=== PATIENT | male | born 1980 | race Caucasian/White ===

== ENCOUNTER 2018-02-09 10:33 | Emergency (ER) | payer OTHER ==
[~2018-02-09 10:33] MED LIST: AMPH30TA10 PO; IBUP800T37 PO; LOR5 PO; LOR5/325 PO
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
[2018-02-09 11:00] VITALS: BP 133/93
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
== END 2018-02-09 11:33 | disposition home or self-care (01) ==
LOC: ER 10:51
DX: S40.212A Abrasion of left shoulder, initial encounter (principal); V48.5XXA Car driver injured in noncollision transport accident in traffic accident, initial encounter
CPT/HCPCS: 99283

== ENCOUNTER 2018-03-14 03:42 | Emergency (ER) | payer SELFPAY ==
[2018-03-14 03:45] VITALS: BP 145/95
--- NOTE | 2018-03-14 03:46 | ER Report ---
History and Physical Time Seen By MD: 03:45 HPI/ROS CHIEF COMPLAINT: Toothache HISTORY OF PRESENT ILLNESS: Patient with complaint of left lower jaw pain that began approximately 24 hours ago. Patient noticed some swelling this evening when he woke up in pain. He has been taking Tylenol and Motrin for pain. Patient does not routinely follow with a dentist. REVIEW OF SYSTEMS: Gen: No fevers ENT: Left lower jaw pain, no ear pain Allergies: Coded Allergies: No Known Drug Allergies (Verified , 02/09/18) Home Meds Active Scripts Clindamycin Hcl (CLINDAMYCIN HCL) 300 Mg Capsule, 300 MG PO Q6H, #40 CAPSULE 0 Refills Prov:HERNAN TROTTER MD 03/14/18 Oxycodone Hcl/Acetaminophen (PERCOCET 5-325 MG TABLET) 1 Each Tablet, 1 EACH PO Q4H for PAIN, #20 TAB 0 Refills Prov:HERNAN TROTTER MD 03/14/18 Reported Medications Amphet Asp/Amphet/D-Amphet (ADDERALL 30 MG TABLET) 30 Mg Tablet, 30 MG PO BID 08/29/14 Past Medical/Surgical History Noncontributory ports this chief complaint Hx Smoking: Yes Smoking Status: Current: Every Day Smoker Constitutional Vital Sign - Last 24 Hours 03/14/18 03:45 Temp 98.1 Pulse 65 Resp 17 B/P (MAP) 145/95 Pulse Ox 94 O2 Delivery Room Air Physical Exam General Appearance: Alert, no distress. Eyes: Pupils equal and round no pallor or injection. ENT, Mouth: Ears: Tympanic membranes are normal. Nose: No bleeding. Mouth: Mucous membranes are moist. Patient has a fractured 1st mandibular molar left aspect of the jaw. There is some gingival swelling no palpable abscess. Throat: No erythema or exudates there is no tonsillar hypertrophy and uvula is midline. Musculoskeletal: Neck is supple non tender, no adenopathy. Skin: Warm and dry, no rashes. Medical Decision Making ED Course/Re-evaluation ED Course 03/14/2018 3:59:26 am . Inferior alveolar nerve Block was performed. 2 mL of 0.5%. Marcaine was injected to the inferior alveolar foramen of the left jaw. Plan at this time will be intramuscular injection of clindamycin along with sending patient home with oral clindamycin and Percocet will also call in prescription for both. Decision to Disposition Date: Mar 14, 2018 Decision to Disposition Time: 04:15 Depart Departure Latest Vital Signs Vital Signs Date Time Temp Pulse Resp B/P (MAP) Pulse Ox O2 Delivery O2 Flow Rate FiO2 03/14/18 03:45 98.1 65 17 145/95 94 Room Air Impression: Primary Impression: Pain, dental Condition: Improved Disposition: HOME OR SELF-CARE New Scripts Clindamycin Hcl (CLINDAMYCIN HCL) 300 Mg Capsule 300 MG PO Q6H, #40 CAPSULE 0 Refills Prov: HERNAN TROTTER MD 03/14/18 Oxycodone Hcl/Acetaminophen (PERCOCET 5-325 MG TABLET) 1 Each Tablet 1 EACH PO Q4H for PAIN, #20 TAB 0 Refills Prov: HERNAN TROTTER MD 03/14/18 Patient Instructions: Dental Caries (GEN) Additional Instructions: Scheduling follow-up appointment with [facility] by calling [phone] Take your antibiotics and pain medication as directed. You were given one morning dose of clindamycin which yoy should taken approximately 6 hours then fill your prescription and take as directed. Percocet 1 tablet every 4 hours as needed for pain HERNAN TROTTER MD Mar 14, 2018 03:46
[2018-03-14] MEDS ORDERED: oxyCODONE/ACETAMIN 5/325MG TH 2 TAB/BOTTLE PO ONE (04:00)
[2018-03-14] MEDS ORDERED: CLINDAMYCIN 150 MG CAP PO ONE (04:00)
[2018-03-14] MEDS ORDERED: CLINDAMYCIN 300 MG/2 ML VIAL IM ONE (04:00)
[2018-03-14] MEDS ORDERED: CLIN300C99 PO (04:02)
[2018-03-14] MEDS ORDERED: OXYC-865 PO (04:02)
== END 2018-03-14 04:11 | disposition home or self-care (01) ==
LOC: ER 03:47
DX: K08.89 Other specified disorders of teeth and supporting structures (principal)
CPT/HCPCS: 64400; 96372; 99283; J3490

== ENCOUNTER 2018-03-14 12:46 | Emergency (ER) | payer SELFPAY ==
[~2018-03-14 12:46] MED LIST changes: +CLIN300C99 PO; +OXYC-865 PO
--- NOTE | 2018-03-14 13:16 | ER Report ---
History and Physical Time Seen By MD: 13:00 Hx. of Stated Complaint: PATIENT REPORTS DENTAL ABSCESS NOT IMPROVING AFTER 1 DOSE OF ORAL ABX HPI/ROS CHIEF COMPLAINT: Dental pain HISTORY OF PRESENT ILLNESS: This is a 37-year-old male who presents to the emergency department for dental pain and swelling. Patient was seen and evaluated in the manager food for potential dental infection, was given clindamycin injection and a prescription as well, was also given Percocet for pain. He states that he was concerned that the swelling had increased since receiving the antibiotics. No fevers or chills. No nausea or vomiting. Patient does state that the pain has improved however he is just concerned with the amount of swelling. No chest pain or shortness breath. REVIEW OF SYSTEMS: Constitutional: No fever, no chills. Eyes: No discharge. ENT: As above. Cardiovascular: No chest pain, no palpitations. Respiratory: No cough, no shortness of breath. Gastrointestinal: No abdominal pain, no vomiting. Genitourinary: No hematuria. Musculoskeletal: No back pain. Skin: No rashes. Neurological: No headache. Allergies: Coded Allergies: No Known Drug Allergies (Verified , 02/09/18) Home Meds Active Scripts Clindamycin Hcl (CLINDAMYCIN HCL) 300 Mg Capsule, 300 MG PO Q6H, #40 CAPSULE 0 Refills Prov:HERNAN THOMAS MD 03/14/18 Oxycodone Hcl/Acetaminophen (PERCOCET 5-325 MG TABLET) 1 Each Tablet, 1 EACH PO Q4H for PAIN, #20 TAB 0 Refills Prov:HERNAN THOMAS MD 03/14/18 Reported Medications Amphet Asp/Amphet/D-Amphet (ADDERALL 30 MG TABLET) 30 Mg Tablet, 30 MG PO BID 08/29/14 Past Medical/Surgical History The patient has a past medical and surgical history of borderline hypertension, ADHD, poor dentition. Hx Smoking: Yes Smoking Status: Current: Every Day Smoker Constitutional Vital Sign - Last 24 Hours 03/14/18 03/14/18 12:52 13:23 Temp 98.9 Pulse 75 70 Resp 20 B/P (MAP) 149/103 141/98 (112) Pulse Ox 92 93 O2 Delivery Room Air Room Air Physical Exam General Appearance: The patient is alert, has no immediate need for airway protection and no signs of toxicity. Eyes: Pupils equal and round no pallor or injection. ENT, Mouth: Mucous membranes are moist. Several cavities noted throughout, does have a broken tooth to the 2nd molar on the left mandible. Gingivitis throughout, no erythema or purulent Drainage noted. No fluctuance or apparent abscess to the left lower jaw, there is generalized swelling. Respiratory: There are no retractions, lungs are clear to auscultation. Cardiovascular: Regular rate and rhythm. Gastrointestinal: Abdomen is soft and non tender, no masses, bowel sounds normal. Neurological: Alert and oriented 4. Moving all cavities. No commands. No focal neuro deficits. Skin: Warm and dry, no rashes. Musculoskeletal: Neck is supple non tender. No lymphadenopathy. Extremities are nontender, nonswollen and have full range of motion. DIFFERENTIAL DIAGNOSIS: After history and physical exam differential diagnosis was considered for dental caries, dental abscess, Eliot's angina, peritonsillar abscess. Medical Decision Making ED Course/Re-evaluation ED Course Patient was admitted to room. A history and physical were obtained. Differential diagnoses were considered. After examination of the patient, he was concerned about the amount of swelling since receiving his initial dose of antibiotics, he has taken an additional dose of clindamycin. He is also taken the Percocet, patient states that the pain is improved he just concerned with the amount of swelling involved. I did offer the patient a CT scan to evaluate for an abscess, patient states that he is not CT scan at this time. I did recommend continuing the clinic myosin and ibuprofen for inflammation. Patient expressed understanding, I did encourage him to return to the ER for any other concerns or worsening symptoms. He was in agreement with this plan of care and discharged home. Decision to Disposition Date: Mar 14, 2018 Decision to Disposition Time: 13:20 Depart Departure Latest Vital Signs Vital Signs Date Time Temp Pulse Resp B/P (MAP) Pulse Ox O2 Delivery O2 Flow Rate FiO2 03/14/18 13:23 70 141/98 (112) 93 Room Air 03/14/18 12:52 98.9 20 Impression: Primary Impression: Pain, dental Condition: Condition Unchanged Disposition: HOME OR SELF-CARE Patient Instructions: Dental Abscess (ED), Dental Caries (ED) Additional Instructions: If you change your mind about the CT scan of the jaw to look for an abscess please return. Continue taking the Clindamycin that Dr. Thomas prescribed. Take the pain medications as needed. Take Ibuprofen, 800mg every 8 hours as needed for pain and swelling. Drink plenty of water. Get plenty of rest. Be sure to contact [facility] first thing Thursday morning for reevaluation. Return to the ED for any other concerns, fevers, chills, aches or airway involvement, BETZY VALE CONCESSION ATTENDANT-BC Mar 14, 2018 13:16
[2018-03-14 13:23] VITALS: BP 141/98
== END 2018-03-14 13:26 | disposition home or self-care (01) ==
LOC: ER 13:05
DX: K08.89 Other specified disorders of teeth and supporting structures (principal); F17.210 Nicotine dependence, cigarettes, uncomplicated
CPT/HCPCS: 99281